=== PATIENT | female | born 1970 | race African-American/Black ===

== ENCOUNTER 2022-03-17 08:34 | Outpatient (CLI) | payer OTHER, SELFPAY ==
--- NOTE | ~2022-03-17 | MM_ITS ---
EXAMINATION: MM screening randy BI w cindy HISTORY: Screening mammogram TECHNIQUE: Craniocaudal and mediolateral oblique 3-D tomosynthesis images were obtained and synthetic 2-D images were generated. CAD analysis was submitted and interpreted. COMPARISON: 05/20/2015 BREAST PARENCHYMAL COMPOSITION: The breasts are heterogeneously dense, which may obscure small masses . FINDINGS: RIGHT BREAST: No suspicious mass, calcification, or architectural distortion are identified to sugges t malignancy. There has been no suspicious interval change. LEFT BREAST: An asymmetry is present in the far posterior third outer breast on the craniocaudal view . IMPRESSION: 1. Left breast asymmetry on the craniocaudal view. 2. Additional mammographic views and possible breast ultrasound are recommended. BI-RADS Category 0: Incomplete: Needs additional imaging evaluation. Reviewed, dictated and finalized at location A. IMPRESSION: 1. Left breast asymmetry on the craniocaudal view. 2. Additional mammographic views and possible breast ultrasound are recommended . BI-RADS Category 0: Incomplete: Needs additional imaging evaluation.
== END 2022-03-17 08:35 | disposition home or self-care (01) ==
DX: Z12.31 Encounter for screening mammogram for malignant neoplasm of breast (principal); R92.8 Other abnormal and inconclusive findings on diagnostic imaging of breast
CPT/HCPCS: 77063; 77067

== ENCOUNTER 2022-05-11 13:22 | Outpatient (CLI) | payer OTHER, SELFPAY ==
--- NOTE | ~2022-05-11 | MM_ITS ---
EXAMINATION: MM diagnostic randy LT w cindy HISTORY: Follow-up left breast asymmetry TECHNIQUE: Additional 3-D tomosynthesis images of the left breast were performed and synthetic 2-D im ages were generated. CAD analysis was submitted and interpreted. COMPARISON: Comparison to multiple prior studies sequentially, with oldest reviewed study dated 04/24. BREAST PARENCHYMAL COMPOSITION: The breasts are heterogeneously dense, which may obscure small masses FINDINGS: There are no suspicious masses, calcifications or architectural distortion in the left long st. The asymmetry in the posterior lateral aspect of the left breast on CC view is compressed with sp ot views, compatible with superimposed fibroglandular content. IMPRESSION: 1. No evidence for malignancy in the left breast. 2. Routine yearly screening mammogram and regular clinical breast examination are recommended. BI-RADS Category 1: Negative Reviewed, dictated and finalized at location A. ERY SHOPPER IMPRESSION: 1. No evidence for malignancy in the left breast. 2. Routine yearly screening mammogram and regular clinical breast examination a re recommended. BI-RADS Category 1: Negative
== END 2022-05-11 13:23 | disposition home or self-care (01) ==
DX: R92.8 Other abnormal and inconclusive findings on diagnostic imaging of breast (principal)
CPT/HCPCS: 77061; 77065; G0279

== ENCOUNTER 2022-10-06 16:54 | Outpatient (CLI) | payer OTHER, SELFPAY ==
--- NOTE | ~2022-10-06 | XR_ITS ---
Lumbosacral Spine: AP and lateral views Clinical History: Pain Findings: The normal lordotic curve is maintained. The vertebral bodies and posterior elements are i ntact. The intervertebral disc spaces are preserved. There is mild to moderate facet arthropathy at L4-L5 and L5-S1. The sacroiliac joints are normally outlined. Impression: Mild to moderate facet joint degenerative changes, as detailed above. Reviewed, dictated and finalized at location M. Impression: Mild to moderate facet joint degenerative changes, as detailed above.
== END 2022-10-06 16:55 | disposition home or self-care (01) ==
DX: M54.50 Low back pain, unspecified (principal)
CPT/HCPCS: 72100

== ENCOUNTER 2023-06-28 10:38 | Outpatient (CLI) | payer OTHER, SELFPAY ==
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
--- NOTE | ~2023-06-28 | XR_ITS ---
XR hip RT 2V w AP pelvis DATE: 06/28/2023 11:34 INDICATION: Right hip generalized pain following fall TECHNIQUE: AP pelvis. AP and lateral views of right hip. COMPARISON: None FINDINGS: There is patchy sclerotic density of both femoral heads which may be degenerative or possib ly due to avascular necrosis. Consider bilateral MR hip examination to evaluate for avascular necrosi s. Normal alignment at joints, pubic symphysis and sacroiliac joints. No pelvic or right hip fracture or dislocation is detected. IMPRESSION: Patchy sclerotic change of both femoral heads; consider MR examination to evaluate for po ssible avascular necrosis No pelvic or right hip fracture or dislocation Reviewed, dictated and finalized at location B. CONDUCTOR IMPRESSION: Patchy sclerotic change of both femoral heads; consider MR examinat ion to evaluate for possible avascular necrosis No pelvic or right hip fracture or dislocation
--- NOTE | ~2023-06-28 | XR_ITS ---
XR knee RT 3V DATE: 06/28/2023 11:33 INDICATION: Fall. Right knee pain. TECHNIQUE: 3 views COMPARISON: None FINDINGS: No fracture or dislocation or joint effusion. There is mild loss of medial compartment join t space. No radiopaque interarticular loose body or, calcinosis. IMPRESSION: Mild loss of medial compartment joint space Reviewed, dictated and finalized at location B. HER SOFTENER
[2023-06-28 11:37] LABS: Basophils Percent Auto 0.4 % (0.2-1.2); Eosinophils Absolute Auto 0.2 K/mm3 (0-0.3); Eosinophils Percent Auto 2.6 % (0-4.4); Hematocrit 38.8 % (37.0-47.0); Hemoglobin 12.3 g/dL (12.0-15.0); Immature Granulocyte Absolute 0.04 K/mm3 (0.00-0.031); Immature Granulocyte Percent A 0.5 % (0-0.5); Lymphocytes Absolute Auto 2.11 K/mm3 (0.9-3.2); Lymphocytes Percent Auto 27.5 % (18.3-44.2); Mean Corpuscular HGB Conc 31.7 g/dl (32-36); Mean Corpuscular Hemoglobin 29.6 pg (26-34); Mean Corpuscular Volume 93.5 fl (80-100); Mean Platelet Volume 9.8 fl (7.4-10.4); Monocytes Absolute Auto 0.7 K/mm3 (0.1-0.6); Monocytes Percent Auto 9.7 % (2.6-8.5); Neutrophils Absolute Auto 4.5 K/mm3 (1.3-6.7); Neutrophils Percent Auto 59.3 % (45.5-73.1); Platelet Count Result 232 k/mm3 (150-375); Red Blood Count 4.15 M/mm3 (4.2-5.4); Red Cell Distribution Width 13.8 % (11.5-14.5); White Blood Count 7.7 K/mm3 (4.5-10.0)
[2023-06-28 11:45] LABS: Hemoglobin A1C 6.2 % (<5.7)
[2023-06-28 11:52] LABS: Alanine Aminotransferase 22 U/L (6-35); Albumin Level 4.3 g/dL (3.5-5.1); Alkaline Phosphatase 102 U/L (38-126); Anion Gap 5 mmol/L (8-16); Aspartate Amino Transferase 22 U/L (14-36); Bilirubin,Total 0.4 mg/dL (0.2-1.3); Blood Urea Nitrogen 22 mg/dL (7-17); Calcium 9.3 mg/dL (8.4-10.2); Carbon Dioxide 31 mmol/L (22-30); Chloride 105 mmol/L (98-107); Cholesterol 133 mg/dL (0-200); Estimated Glomerular Filt Rate 57; Glucose 90 mg/dL (65-110); HDL Direct 51 mg/dL; Potassium 4.1 mmol/L (3.4-5.0); Sodium 141 mmol/L (137-145); Triglycerides 207 mg/dL (<150)
[2023-06-28 12:03] LABS: LDL Cholesterol Direct 57 mg/dL
[2023-06-28 12:09] LABS: Vitamin D 25 Hydroxy 42.4 ng/mL
[2023-06-28 12:22] LABS: Thyroid Stimulating Hormone 0.322 uIU/mL (0.465-4.680)
== END 2023-06-28 10:39 | disposition home or self-care (01) ==
DX: M25.551 Pain in right hip (principal); M79.671 Pain in right foot; M77.31 Calcaneal spur, right foot
CPT/HCPCS: 36415; 73502; 73562; 73630; 80053; 80061; 82306; 83036; 84443; 85025

== ENCOUNTER 2024-03-23 10:44 | Outpatient (CLI) | payer OTHER, SELFPAY ==
--- NOTE | ~2024-03-23 | XR_ITS ---
AP view of the pelvis and AP and lateral views of the right hip Clinical history: Pain Findings: There is probable bilateral femoral head avascular necrosis, right more extensive than left . There is suggestion of subtle cortical irregularity superior right femoral head, and a subtle subch ondral fracture is suspected. No irregularity of the left femoral head. Bilateral hip joint spaces ar e preserved. Soft tissues are unremarkable. Impression: Suspected subtle subchondral fracture of the superior right femoral head. Findings compatible with un derlying bilateral femoral head avascular necrosis, right more extensive than left. Consider follow-u p MR to further evaluate and confirm underlying fracture. Reviewed, dictated and finalized at location M. Impression: Suspected subtle subchondral fracture of the superior right femoral head. Findi ngs compatible with underlying bilateral femoral head avascular necrosis, right more extensive than left. Consider follow-up MR to further evaluate and confir m underlying fracture.
== END 2024-03-23 10:45 | disposition home or self-care (01) ==
DX: M25.551 Pain in right hip (principal)
CPT/HCPCS: 73502

== ENCOUNTER 2024-06-04 13:29 | Outpatient (CLI) | payer OTHER, SELFPAY ==
--- NOTE | ~2024-06-04 | MR_ITS ---
EXAMINATION: MR hip RT wo con DATE: 06/04/2024 14:53 INDICATION: Osteonecrosis of the head of the right femur TECHNIQUE: Magnetic resonance imaging (MRI) of the right hip was performed without intravenous contr ast. Sequences included full-field axial PD-weighted FS FSE and T1-weighted FSE, coronal of the pelvi s with PD-weighted FS FSE, T2-weighted FSE and T1-weighted FSE, small field of view of the right hip with axial PD-weighted FS FSE, sagittal PD-weighted FS FSE, coronal PD-weighted FS FSE and coronal T2 weighted FSE. Additional radial T1-weighted FGR oriented orthogonal to the acetabular rim were obt ained for evaluation of the labrum. COMPARISON: None FINDINGS: Bones/labrum/cartilage: Advanced osteonecrosis at the right femoral head underlying a large portion of the anterior to coach builder ior superior aspect of the femoral head. There is fragmentation and partial collapse of the articular cortex involving the region measuring approximately 4 similar anterior to posteriorly and r 2.5 cm m edial to lateral. There is some flattening of the contour at the cephalad aspect of the femoral head with up to one-2 mm step-off along the margins of the collapsed portion of the articular surface. The re is underlying large region of subarticular cystlike change with peripheral low signal intensity sc lerotic margins which are also clearly evident on the prior radiographs. There is moderate secondary osteoarthritis with partial-thickness cartilage loss involving both the femoral head and acetabulum. There is secondary subarticular cystlike change underlying the anterior acetabulum. There is diffuse labral degeneration. On the larger [id number] images there is a smaller region of less advanced os teonecrosis underlying the anterior to superior left femoral head but without evident collapse or anatoliy dent compromise of the overlying articular cortex. Sensitivity is however decreased on the low-resolu tion large gggiz-[id number] images. There is mild osteoarthritis at the left hip. Moderate lower lumbar spondylosis with bilateral severe lower lumbar facet osteoarthritis greatest at L4-L5. No fracture or pathologic marrow replacing process. Fluid: Asymmetric synovitis and small joint effusion at the right hip. Physiologic amount fluid at the left hip. No other abnormal fluid collections. Soft tissues: Normal and symmetric muscle bulk and signal in the pelvis and visualized proximal thighs. The iliopso as, gluteal and proximal hamstring tendons are normal. The uterus is not identified and has likely be en surgically resected. Limited evaluation of visceral organs of the pelvis is otherwise unremarkab le including a normal appendix. Likely reactive mild bilateral inguinal lymphadenopathy with the larg est left inguinal lymph node measuring up to 1.5 cm in maximal short axis diameter. IMPRESSION: 1. Bilateral osteonecrosis of the femoral heads more extensive and advanced at the right hip were the re is fragmentation and collapse of the articular surface and moderate secondary right hip osteoarthr itis. No evident collapse of the articular cortex at the left femoral head where there is mild left h ip osteoarthritis although evaluation is more limited on the larger [id number] images. 2. Moderate lower lumbar spondylosis. 3. Likely reactive mild bilateral inguinal lymphadenopathy. Reviewed, dictated and finalized at location B. CRUSHING MACHINE OPERATOR IMPRESSION: 1. Bilateral osteonecrosis of the femoral heads more extensive and advanced at the right hip were there is fragmentation and collapse of the articular surface and moderate secondary right hip osteoarthritis. No evident collapse of the ar ticular cortex at the left femoral head where there is mild left hip osteoarthr itis although evaluation is more limited on the larger fzxkj-[id number] images. 2. Moderate lower lumbar spondylosis. 3. Likely reactive mild bilateral inguinal lymphadenopathy.
== END 2024-06-04 13:30 | disposition home or self-care (01) ==
DX: M47.896 Other spondylosis, lumbar region (principal); M87.851 Other osteonecrosis, right femur; M87.852 Other osteonecrosis, left femur
CPT/HCPCS: 73721

== ENCOUNTER 2024-07-07 11:09 | Emergency (ER) | payer OTHER, SELFPAY ==
[2024-07-07 11:17] VITALS: BP 148/80; PULSE 91; RESP 18; TEMP 36.4; O2SAT 100
--- NOTE | 2024-07-07 11:33 | ED_ITS ---
HPI - URI/Sore Throat General Chief Complaint: Upper Respiratory Infection Stated Complaint: Sinus Time Seen by Provider: 07/07/24 11:10 Source: patient Mode of arrival: ambulatory Limitations: no limitations History of Present Illness HPI Narrative: Patient is a 53-year-old female who presents with 2 weeks of sinus congestion and pressure. Patient has tried [id number] medication with no relief. Denies any fever, chills, nausea, vomiting, diarrhea. Patient does state symptoms improved for a few days and then significantly worsen. Related Data Home Medications ?Medication ?Instructions ?Recorded ?Confirmed ?Last Taken ?Type Bp Med 05/02/19 04/11/24 Unknown History Depression Med. 05/02/19 04/11/24 Unknown History Rls Med 05/02/19 04/11/24 Unknown History amlodipine 5 mg tablet mg 07/07/24 Unknown History atorvastatin 20 mg tablet mg 07/07/24 Unknown History bupropion HCl 150 mg 24 hr tablet, mg PO 07/07/24 Unknown History extended release bupropion HCl 300 mg 24 hr tablet, mg PO 07/07/24 Unknown History extended release ergocalciferol (vitamin D2) 1,250 07/07/24 Unknown History mcg (50,000 unit) capsule (Vitamin D2) gabapentin 400 mg capsule mg 07/07/24 Unknown History lisinopril 10 mg tablet mg 07/07/24 Unknown History prazosin 2 mg capsule mg 07/07/24 Unknown History quetiapine 25 mg tablet mg 07/07/24 Unknown History Allergies Allergy/AdvReac Type Severity Reaction Status Date / Time No Known Allergies Allergy Verified 07/07/24 11:23 Review of Systems Review of Systems: All systems reviewed & are unremarkable except as noted in HPI and below Constitutional: Constitutional: Denies chills, Denies fatigue, Denies fever(s), Denies headache(s), Denies malaise and Denies weakness Eyes: Eyes: Denies blurry vision, Denies itchy eyes and Denies loss of vision ENT: Denies otalgia, Denies headache(s), Reports nasal congestion, Reports sinus pain, Reports sinus pressure and Denies sore throat Cardiovascular: Cardiovascular: Denies chest pain, Denies irregular heart rhythm and Denies dyspnea Respiratory: Respiratory: Denies cough and Denies dyspnea Gastrointestinal: Gastrointestinal: Denies abdominal pain, Denies diarrhea, Denies nausea and Denies vomiting Musculoskeletal: Musculoskeletal: Denies back pain, Denies myalgias and Denies arthralgias Integumentary/Breasts: Skin/Breast: Denies pruritus and Denies rash Neurologic: Denies headache(s), Denies loss of vision and Denies weakness Psychiatric: Psychiatric: Reports no additional psychiatric complaints Endocrine: Endocrine: Denies fatigue Allergic/Immunologic: Allergic/Immunologic: Denies itchy eyes PMFSH Past Medical History Medical History (Updated 07/07/24 @ 11:45 by Luciana Clayton APRN) Anxiety and depression Herniated disc Sleep apnea HTN (hypertension) Seizures Seasonal allergies Surgical History Surgical History History of partial hysterectomy Family History Family History Mother Ovarian cancer Social History Social History Smoking packs per day: 1 Smoking cigarettes per day: 20.0 Smoking status: Current every day smoker Alcohol intake: never Substance use: current Substance use type: marijuana Current Housing: Decline to Answer Concerned About Future Housing: Decline to Answer Difficulty Paying Gas/Electric Bills: Decline to Answer Difficulty Paying for Meds: Decline to Answer Currently Unemployed: Decline to Answer Education: Decline to Answer Difficulty w/ Childcare or Family Care: Decline to Answer Comments At time of signature, agree with nursing past medical, surgical, social and family history. There is no relevant family history pertinent to the presenting complaint. Exam Const: General: cooperative, healthy appearing, comfortable, no acute distress and well nourished Nutritional Appearance: well nourished Orientation/consciousness: patient oriented x3 Limitations: no limitations HENMT: Head: normal to inspection, normocephalic and atraumatic Ears: hearing grossly normal bilaterally, external ears normal, TM's normal bilaterally, EAC's normal and no periauricular adenopathy Face/Nose/Sinus: Normal external nose present, Abnormal mucous membranes and turbinates present erythematous bilateral and diffuse, normal facial exam, face symmetric and Facial tenderness on exam of face and sinuses Face and sinus: normal facial exam and face symmetric Mouth: Yes Normal oral and palatal mucosa present, Yes lip normal, Yes tongue normal, Yes Normal salivary glands and ducts present, Yes oropharynx normal and Yes moist mucous membranes Teeth and gingiva: dentition normal Throat: posterior oropharynx normal, tonsils normal and uvula midline Eyes: General: appearance normal, both eyes and all related structures Alignment and Position: alignment normal and position normal Periorbital: periorbital findings normal Eyelids: eyelids normal Pupils: Equal, round and reactive pupils present Neck: Neck: normal visual inspection, full ROM, no lymphadenopathy and supple Chest: Chest palpation & inspection: normal inspection of the chest and normal palpation of entire chest wall Resp: Effort & Inspection: normal respiratory effort and able to speak in complete sentences Auscultation: clear to auscultation bilaterally, no crackles, no rales, no rhonchi and no wheezes Cardio: Rate: regular rate Rhythm: regular rhythm Heart sounds: S1 normal heart sound present and S2 normal heart sound present GI: Inspection: normal to inspection Skin: General skin exam: normal color and no rashes or lesions noted Neuro: General: patient oriented x3 and moves all extremities Cranial nerves: Yes Equal, round and reactive pupils present Speech: normal speech Gait exam (Neuro): Normal gait present Extrem: General: normal to inspection, full ROM and no edema Psych: Appearance: grossly normal and well kempt Mental Status: mental status grossly normal Speech and movement: Normal speech and movement present Affect: normal affect Attitude: cooperative Thought process: Normal thought process present Course Course Emergency Course: Discharge instructions reviewed with patient, as well as provided in writing per nursing staff. The instructions also include specific and strict return/GO TO THE ER as well as f/u information. All questions have been answered, and the patient deny any further questions with discharge and discharge plan. Portions of this record may have been created with voice recognition software Level of Care: Express Care Visit Vital Signs Vital signs: Vital Signs Temperature 36.4 C L 07/07/24 11:17 Pulse Rate 91 07/07/24 11:17 Respiratory Rate 18 07/07/24 11:17 Blood Pressure 148/80 H 07/07/24 11:17 Pulse Oximetry 100 07/07/24 11:17 Oxygen Delivery Room Air 07/07/24 11:17 Temperature 36.4 C L 07/07/24 11:17 Pulse Rate 91 07/07/24 11:17 Respiratory Rate 18 07/07/24 11:17 Blood Pressure 148/80 H 07/07/24 11:17 Pulse Oximetry 100 07/07/24 11:17 Oxygen Delivery Room Air 07/07/24 11:17 Reviewed MDM - URI/Sore Throat MDM Narrative Medical decision making narrative: Pt well hydrated appearing, in no respiratory distress, hemodynamically stable. Recommend supportive care. The patient is stable at time of discharge the clinical impression was discussed and the patient was given the opportunity to ask questions, which were addressed as completely as possible given the informat ion available at present. Anticipatory guidance and return to care precautions were discussed and the importance of primary care follow-up was stressed and encouraged. The patient voiced understanding of the plan, indications to return, and the need for follow-up. Differential diagnosis considered: Arredondo virus, strep pharyngitis, allergic rhinitis, upper respiratory tract infection, sinusitis, rhinosinusitis, nasopharyngitis. viral pharyngitis, otitis media, otitis externa, otitis effusion, foreign body, cerumen impaction, viral syndrome, and influenza.? Exam findings show no acute concerns or changes; patient is non-toxic appearing and is in no distress.? Patient is appropriate for outpatient treatment and follow- up.? Medical Records Attestation: I reviewed the patient's medical records. Discharge Plan Discharge Clinical Impression: Sinusitis Qualifiers: Sinusitis location: maxillary Chronicity: acute Recurrence: non-recurrent Qualified Code(s): J01.00 - Acute maxillary sinusitis, unspecified Patient Disposition: Home, Self-Care Condition: Stable Instructions: Sinusitis (ED) Additional Instructions: Take antibiotics as prescribed. Take steroids per package instruction Symptomatic treatment of a sinus infection aims to relieve symptoms. These treatments do not shorten the duration of illness. Nonprescription pain medications, such as acetaminophen (eg, Tylenol) or ibuprofen (eg, Motrin, Advil), are recommended for pain. Flushing the nose and sinuses with a saline solution several times per day has been proven to decrease pain associated with congestion and shorten the duration of symptoms. Nasal steroids (such as Flonase, 2 sprays in each nostril daily) can help to reduce swelling inside the nose, usually within two to three days. These drugs have few side effects and relieve symptoms in most people. Oral decongestants (pseudoephedrine and phenylephrine) may be helpful if you have associated symptoms of ear pain or fullness. Nasal decongestant sprays, including oxymetazoline (Afrin) and phenylephrine (Jose-Synephrine), can be used to temporarily treat congestion. However, these sprays should not be used for more than two to three days due to the risk of rebound congestion (when the nose becomes congested constantly unless the medication is used repeatedly), possible addiction, and long-term consequences of frequent use, including persistent nasal dryness and crusting, which is very difficult to treat once it has developed. Medications to thin secretions (such as guaifenesin) may help to clear mucus. Please follow-up with your primary care doctor in the next 1-2 days. If you cannot follow-up with your primary care doctor please go to the ED for any u rgent issues. If you have any worsening of symptoms or any other concerns please go to the ED immediately. Your blood pressure was elevated above 120/80 today at Urgent Care. This puts you above the threshold for follow up visit with a primary care provider. High blood pressure does not usually cause any symptoms, however it may lead to kidney failure, stroke, heart disease just to name a few if untreated . Many people are anxious when seeing a provider or nurse. As a result, you are not diagnosed with hypertension at this time unless your blood pressure is persistently high at two office visits at least one week apart. Some things that can help lower blood pressure are lifestyle modifications, such as light exercise, decreased salt in diet, and weight loss. It is important to follow up with a PCP about this within 1 week. Patient Language: Montenegrin Prescriptions: New methylprednisolone [Medrol (Renan)] 4 mg tablets,dose pack See Rx Instructions .ROUTE .COMPLEX Qty: 21 0RF Rx Instructions: orally per package directions amoxicillin-pot clavulanate 875-125 mg tablet 1 tablet PO Q12H 10 Days Qty: 20 0RF No Action Depression Med. Bp Med Rls Med quetiapine 25 mg tablet atorvastatin 20 mg tablet gabapentin 400 mg capsule amlodipine 5 mg tablet lisinopril 10 mg tablet ergocalciferol (vitamin D2) [Vitamin D2] 1,250 mcg (50,000 unit) capsule prazosin 2 mg capsule bupropion HCl 300 mg tablet extended release 24 hr PO bupropion HCl 150 mg tablet extended release 24 hr PO Follow-up/Referrals: PHYSICIAN,DIABETES TERRITORY MANAGER [Primary Care Provider] - Bob Choe MD [Physician] - 3 Days Stand Alone Forms: Work/School Release IP Time of Disposition: 11:46
== END 2024-07-07 11:55 | disposition home or self-care (01) ==
PROVIDERS: Emergency Provider Nurse Practitioner Family
DX: J01.00 Acute maxillary sinusitis, unspecified (principal); F17.210 Nicotine dependence, cigarettes, uncomplicated; F12.90 Cannabis use, unspecified, uncomplicated; I10 Essential (primary) hypertension; Z90.711 Acquired absence of uterus with remaining cervical stump
CPT/HCPCS: 99213; G0463